=== PATIENT | female | born 2000 | race Caucasian/White ===

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

== ENCOUNTER 2020-02-13 20:26 | Emergency (ER) | payer BC, OTHER ==
[~2020-02-13] VITALS: Ht 162.6 cm; Wt 90.0 kg
--- NOTE | 2020-02-13 20:46 | PHYS DOC ---
Past History Past Medical History: Constipation, Other Past Surgical History: No Surgical History Smoking: Non-smoker Alcohol Use: None Drug Use: None Adult General Chief Complaint Chief Complaint: ALLERGIC REACTION... " I think that I am allergic to a hedge hog".." Right after we brought home 'Anand' my face started swelling up...".. " He is a albino Hedge Hog...." HPI HPI Patient is a 19 year old female who presents with above hx and complaints of allergic reaction to her new pet Hedge Hog. Patient has facial edema and erythema. Nasal congestion and rhinorrhea with scattered wheezes. Patient has not had previous exposure to Hedge Hogs. No new changes and other meds soaps or exposures patient did take Benadryl at home which has helped . No recent travel. No history immunosuppression. No history of other sensitivities noted. Patient's symptoms did remove improve after removal of Hedge Hog from home.. Pt. follows with Dr. Connie Corey. Review of Systems Review of Systems Constitutional: Denies fever or chills [] Eyes: Denies change in visual acuity, redness, or eye pain [] HENT: Complains of nasal congestion and drainage] Respiratory: Complaints of wheezing Cardiovascular: No additional information not addressed in HPI [] GI: Denies abdominal pain, nausea, vomiting, bloody stools or diarrhea [] : Denies dysuria or hematuria [] Musculoskeletal: Denies back pain or joint pain [] Integument: Complaints of facial rash and swelling Neurologic: Denies headache, focal weakness or sensory changes [] Endocrine: Denies polyuria or polydipsia [] All other systems were reviewed and found to be within normal limits, except as documented in this note. Family History Family History Noncontributory to her presentation Current Medications Current Medications See nursing for home meds Allergies Allergies Allergies Coded Allergies Type Severity Reaction Last Updated Verified No Known Drug Allergies 03/26/19 No Physical Exam Physical Exam Constitutional: Well developed, well nourished, moderate acute distress, non- toxic appearance. [] HENT: Normocephalic, atraumatic, bilateral external ears normal, oropharynx mois t, no oral exudates, nose swollen turbinates and clear rhinorrhea. Bilateral facial erythema and swelling and periorbital edema Eyes: PERRLA, EOMI, conjunctiva mild injection, no discharge. [] Neck: Normal range of motion, no tenderness, supple, no stridor. [] Cardiovascular:Heart rate regular rhythm, no murmur [] Lungs & Thorax: Bilateral breath sounds equal apex with scattered wheezes on auscultation [] Abdomen: Bowel sounds normal, soft, no tenderness, no masses, no pulsatile masses. [] Skin: Warm, dry, no erythema, facial rash. [] Back: No tenderness, no CVA tenderness. [] Extremities: No tenderness, no cyanosis, no clubbing, ROM intact, no edema. [] Neurologic: Alert and oriented X 3, normal motor function, normal sensory function, no focal deficits noted. [] Psychologic: Affect normal, judgement normal, mood normal. [] EKG EKG [] Radiology/Procedures Radiology/Procedures [] Course & Med Decision Making Course & Med Decision Making Pertinent Labs and Imaging studies reviewed. (See chart for details) Patient to wash all clothing wear hedge hog had contact. Avoid further exposure. Take prednisone 50 mg a day for 5 days. Takes Zantac 150 mg twice a day. Use MDI 2 puffs 4 times a day. Continue Benadryl 25-50 mg 4 times a day. Follow-up primary care. Return if any concerns. Impression: 1. 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 Departure Departure: Disposition: HOME/RESIDENCE PRIOR TO ADM Condition: STABLE Referrals: CONNIE COREY MD (PCP) Scripts Ranitidine Hcl (ZANTAC) 150 Mg Tablet 150 MG PO BID for allergic for 10 Days, #20 TAB Prov: FROILAN KHALIL MD 02/13/20 Prednisone (PREDNISONE) 50 Mg Tablet 50 MG PO DAILY for allergy for 5 Days, #5 TAB Prov: FROILAN KHALIL MD 02/13/20 Josse Disclaimer This chart was dictated in whole or in part using Voice Recognition software in a busy, high-work load, and often noisy Emergency Department environment. It ma y contain unintended and wholly unrecognized errors or omissions. Dragon Disclaimer This chart was dictated in whole or in part using Voice Recognition software in a busy, high-work load, and often noisy Emergency Department environment. It may contain unintended and wholly unrecognized errors or omissions. FROILAN KHALIL MD Feb 13, 2020 20:46
[2020-02-13] MEDS ORDERED: predniSONE 10 MG TABLET PO ONE (21:15)
[2020-02-13] MEDS ORDERED: FAMOTIDINE 20 MG TABLET PO ONE (21:15)
[2020-02-13] MEDS ORDERED: ALBUTEROL SULFATE 8GM INHALER. INH ONE (21:15)
[2020-02-13] MEDS ORDERED: RANI-376 PO (21:36)
[2020-02-13] MEDS ORDERED: PRED50TA PO (21:36)
[2020-02-13 22:17] LABS: BACTERIA,URINE FEW /HPF (0-FEW); BILIRUBIN,URINE NEG (NEG); CLARITY,URINE HAZY; COLOR,URINE YELLOW; GLUCOSE,URINE NEG (NEG); NITRITE,URINE NEG (NEG); RBC,URINE 0 /HPF (0-2); SQUAMOUS EPITHELIAL CELL,UR FEW /LPF; UROBILINOGEN,URINE 0.2 mg/dL (0.2 mg/dL)
[2020-02-13 22:40] VITALS: BP 136/77
== END 2020-02-13 22:35 | disposition home or self-care (01) ==
LOC: ER 20:26
DX: T78.40XA Allergy, unspecified, initial encounter (principal); X58.XXXA Exposure to other specified factors, initial encounter
CPT/HCPCS: 81001; 81025; 94640; 99283; J7512; J7613; 94664

== ENCOUNTER 2020-03-13 11:46 | Emergency (ER) | payer BC ==
[~2020-03-13] VITALS: Ht 162.6 cm; Wt 95.0 kg
[~2020-03-13 11:46] MED LIST: PRED50TA PO; RANI-376 PO
[2020-03-13] MEDS ORDERED: ONDANSETRON PF 4 MG/2 ML VIAL. IVP ONE (12:15)
[2020-03-13] MEDS ORDERED: IV NORMAL SALINE 1,000ML 1,000 ML IV SCH (12:15)
--- NOTE | 2020-03-13 12:19 | PHYS DOC ---
Past History Past Medical History: No Pertinent History Past Surgical History: No Surgical History Smoking: Non-smoker Alcohol Use: None Drug Use: None General Adult EDM: Chief Complaint: FLANK PAIN HPI: HPI: 20-year-old female who presents for evaluation of sudden onset of throbbing right flank pain that radiates the right lower quadrant that began earlier today. Associated with nausea and 2 episodes of nonbloody/nonbilious emesis. No prior abdominal surgeries. No other associated symptoms. Denies hematuria or dysuria. No prior history of nephrolithiasis. Review of Systems: Review of Systems: General: No fevers, chills. Eyes: No blurred vision, diplopia. ENT: No nasal congestion, sore throat. CV: No chest pain, edema. Resp: No shortness of breath, cough. GI: Reports right flank pain and abdominal pain, nausea, vomiting. : No dysuria, hematuria. Neuro: No headache, dizziness, weakness. MSK: No myalgia, arthralgia Skin: No acute rash, lesion. Heart Score: Risk Factors: Risk Factors: DM, Current or recent (<one month) smoker, HTN, HLP, family history of CAD, obesity. Risk Scores: Score 0 - 3: 2.5% MACE over next 6 weeks - Discharge Home Score 4 - 6: 20.3% MACE over next 6 weeks - Admit for Clinical Observation Score 7 - 10: 72.7% MACE over next 6 weeks - Early Invasive Strategies Allergies: Allergies: Allergies Coded Allergies Type Severity Reaction Last Updated Verified No Known Drug Allergies 03/26/19 No Physical Exam: PE: Gen: Uncomfortable appearing. Head: NC/AT Eyes: No scleral icterus. No conjunctival injection. ENT: MMM. Posterior OP clear. Neck: Supple. NT. CV: RRR. Peripheral pulses intact. Resp: CTAB. Abd: Soft. ND. Right flank percussion tenderness. No overlying skin changes. No rebound, guarding, rigidity. MSK: No peripheral cyanosis. No edema. Neuro: Awake and alert. Skin: Warm. Dry. Psych: Tearful. Current Patient Data: Vital Signs: Vital Signs Date Time Temp Pulse Resp B/P (MAP) Pulse Ox O2 Delivery O2 Flow Rate FiO2 03/13/20 12:03 98.5 68 18 161/113 (129) 98 Room Air EKG: EKG: [] Radiology/Procedures: Radiology/Procedures: CT Abdomen and Pelvis without contrast History: Right flank pain Technique: Noncontrast CT imaging was performed of the abdomen and pelvis. Multiplanar images are reviewed. Exposure: One or more of the following individualized dose reduction techniques were utilized for this examination: 1. Automated exposure control 2. Adjustment of the mA and/or kV according to patient size 3. Use of iterative reconstruction technique. Comparison: March 26, 2019 Findings: There is mild right hydroureteronephrosis, 0.2 cm calculus in the distal right ureter just proximal to the ureterovesical junction. There is probable punctate mid right renal calculus as suggested on coronal image. There is 0.1 cm calculus of the mid left kidney, no left hydronephrosis or ureteral calculus. Accurate evaluation of abdominal visceral organs is limited without intravenous contrast. There is no obvious abnormality of the spleen, liver, or pancreas. Gallbladder is present without obvious intraluminal abnormality by CT. There is no adrenal nodularity. Accurate evaluation of bowel is limited without oral contrast. Normal caliber appendix is visualized without adjacent inflammatory change. There is no significant free air, free fluid, bowel dilatation. There may be small cysts of the adnexal regions bilaterally. There are multiple small nonspecific mesenteric and retroperitoneal nodes as seen previously. Impression: 1. There is mild right hydroureteronephrosis, 0.2 cm calculus in the distal right ureter proximal to the ureterovesical junction. There is small nonobstructive left renal calculus, also likely punctate mid right renal calculus. 2. There may be small cysts of the adnexal regions bilaterally. Electronically signed by: Celso Walsh MD (03/13/2020 1:13 PM) [id number] Course & Med Decision Making: Course & Med Decision Making Pertinent Labs and Imaging studies reviewed. (See chart for details) In summary, 20-year-old female presenting with right flank pain, found to have right-sided ureterolithiasis. Otherwise unremarkable lab work. Pain improved with fentanyl and morphine. We discharged home with outpatient urology follow- up. Rx for [place] [employer] and Zofran. Return precautions given. Dragon Disclaimer: Josse Disclaimer: This electronic medical record was generated, in whole or in part, using a voice recognition dictation system. Departure Departure: Impression: Primary Impression: Right ureteral calculus Disposition: HOME, SELF-CARE Condition: STABLE Referrals: LUCI COREY MD (PCP) Patient Instructions: Kidney Stones, [id number] Additional Instructions: Follow up with [facility], or the urologist of your choice, by calling [phone] Scripts Hydrocodone Bit/Acetaminophen (NORCO 5-325 TABLET) 1 Each Tablet 1 TAB PO Q8HRS PRN for PAIN, #15 TAB 0 Refills Prov: LE,FRANKLIN H DO 03/13/20 Ondansetron Hcl (ZOFRAN) 4 Mg Tablet 1 TAB PO PRN Q6HRS PRN for NAUSEA, #12 TAB Prov: LE,FRANKLIN H DO 03/13/20 LE,FRANKLIN H DO Mar 13, 2020 12:19
[2020-03-13] MEDS ORDERED: ONDANSETRON ODT 4 MG TAB.RAPDIS PO ONE (12:45)
[2020-03-13 12:53] LABS: BASO % 1 % (0-3); EOS # 0.3 x10^3/uL (0.0-0.7); EOS % 4 % (0-3); HEMATOCRIT 44.2 % (36.0-47.0); HEMOGLOBIN 14.8 g/dL (12.0-15.5); LYMPH # 2.8 x10^3/uL (1.0-4.8); LYMPH % 44 % (24-48); MEAN CORPUSCULAR HEMOGLOBIN 31 pg (25-35); MEAN CORPUSCULAR HGB CONC 34 g/dL (31-37); MEAN CORPUSCULAR VOLUME 92 fL (79-100); MONO # 0.4 x10^3/uL (0.0-1.1); MONO % 6 % (0-9); NEUT % 46 % (31-73); PLATELET COUNT 322 x10^3/uL (140-400); RED CELL DISTRIBUTION WIDTH 12.7 % (11.5-14.5); WHITE BLOOD COUNT 6.5 x10^3/uL (4.0-11.0)
[2020-03-13 12:56] LABS: CALCIUM 8.9 mg/dL (8.5-10.1); GFR 70.7; POTASSIUM 3.7 mmol/L (3.5-5.1)
[2020-03-13 13:01] LABS: BACTERIA,URINE FEW /HPF (0-FEW); BILIRUBIN,URINE NEG (NEG); CLARITY,URINE HAZY; COLOR,URINE YELLOW; GLUCOSE,URINE NEG (NEG); NITRITE,URINE NEG (NEG); RBC,URINE 20-40 /HPF (0-2); SQUAMOUS EPITHELIAL CELL,UR MOD /LPF; UROBILINOGEN,URINE 0.2 mg/dL (0.2 mg/dL)
[2020-03-13 13:02] LABS: ALBUMIN 3.8 g/dL (3.4-5.0); MAGNESIUM 1.9 mg/dL (1.8-2.4); TOTAL BILIRUBIN 0.3 mg/dL (0.2-1.0); TOTAL PROTEIN 7.6 g/dL (6.4-8.2)
--- NOTE | 2020-03-13 13:16 | RAD ---
CT Abdomen and Pelvis without contrast History: Right flank pain Technique: Noncontrast CT imaging was performed of the abdomen and pelvis. Multiplanar images are reviewed. Exposure: One or more of the following individualized dose reduction techniques were utilized for this examination: 1. Automated exposure control 2. Adjustment of the mA and/or kV according to patient size 3. Use of iterative reconstruction technique. Comparison: March 26, 2019 Findings: There is mild right hydroureteronephrosis, 0.2 cm calculus in the distal right ureter just proximal to the ureterovesical junction. There is probable punctate mid right renal calculus as suggested on coronal image. There is 0.1 cm calculus of the mid left kidney, no left hydronephrosis or ureteral calculus. Accurate evaluation of abdominal visceral organs is limited without intravenous contrast. There is no obvious abnormality of the spleen, liver, or pancreas. Gallbladder is present without obvious intraluminal abnormality by CT. There is no adrenal nodularity. Accurate evaluation of bowel is limited without oral contrast. Normal caliber appendix is visualized without adjacent inflammatory change. There is no significant free air, free fluid, bowel dilatation. There may be small cysts of the adnexal regions bilaterally. There are multiple small nonspecific mesenteric and retroperitoneal nodes as seen previously. Impression: 1. There is mild right hydroureteronephrosis, 0.2 cm calculus in the distal right ureter proximal to the ureterovesical junction. There is small nonobstructive left renal calculus, also likely punctate mid right renal calculus. 2. There may be small cysts of the adnexal regions bilaterally. Electronically signed by: Celso Walsh MD (03/13/2020 1:13 PM) [id number]
[2020-03-13] MEDS ORDERED: MORPHINE SULFATE 4 MG/ML DISP.SYRIN. IV ONE (13:30)
[2020-03-13 13:57] VITALS: BP 144/66
[2020-03-13] MEDS ORDERED: HYDR-3165 PO (14:07)
[2020-03-13] MEDS ORDERED: ONDA4TAB7 PO (14:07)
== END 2020-03-13 14:08 | disposition home or self-care (01) ==
LOC: ER 11:46
DX: N13.2 Hydronephrosis with renal and ureteral calculous obstruction (principal); R11.2 Nausea with vomiting, unspecified
CPT/HCPCS: 36415; 74176; 80053; 81001; 81025; 83690; 83735; 85025; 96361; 96374; 96376; 99284; J3010; Q0162; J7030

== ENCOUNTER → 2020-07-02 | Outpatient (CLI) | payer BC ==
[~2020-07-02] MED LIST changes: +HYDR-3165 PO; +ONDA4TAB7 PO
[2020-07-02 16:00] LABS: BASO # 0.1 x10^3/uL (0.0-0.2); BASO % 1 % (0-3); EOS # 0.2 x10^3/uL (0.0-0.7); EOS % 3 % (0-3); HEMATOCRIT 42.1 % (36.0-47.0); HEMOGLOBIN 14.1 g/dL (12.0-15.5); LYMPH # 2.2 x10^3/uL (1.0-4.8); LYMPH % 33 % (24-48); MEAN CORPUSCULAR HEMOGLOBIN 31 pg (25-35); MEAN CORPUSCULAR HGB CONC 34 g/dL (31-37); MEAN CORPUSCULAR VOLUME 93 fL (79-100); MONO # 0.4 x10^3/uL (0.0-1.1); MONO % 7 % (0-9); NEUT # 3.8 x10^3uL (1.8-7.7); NEUT % 57 % (31-73); PLATELET COUNT 342 x10^3/uL (140-400); RED BLOOD COUNT 4.52 x10^6/uL (3.50-5.40); RED CELL DISTRIBUTION WIDTH 12.8 % (11.5-14.5); WHITE BLOOD COUNT 6.7 x10^3/uL (4.0-11.0)
[2020-07-03 13:59] LABS: FREE T4 0.99 ng/dL (0.76-1.46); THYROID STIM HORMONE (TSH) 2.103 uIU/mL (0.358-3.740)
[2020-07-03 19:07] LABS: RUBELLA IGG ANTIBODY <0.90 index (Immune >0.99)
== END | disposition home or self-care (01) ==
LOC: LAB 13:48
PROVIDERS: ATTEND Obstetrics & Gynecology
DX: Z34.91 Encounter for supervision of normal pregnancy, unspecified, first trimester (principal); Z3A.00 Weeks of gestation of pregnancy not specified
CPT/HCPCS: 36415; 81220; 84439; 84443; 84702; 85025; 86592; 86703; 86762; 86787; 86803; 86850; 86900; 86901; 87340

== ENCOUNTER → 2020-07-16 | Outpatient (CLI) | payer BC ==
--- NOTE | 2020-07-16 11:24 | RAD ---
EXAM: Obstetrics sonogram. HISTORY: Size and dates. TECHNIQUE: Sonographic imaging of a gravid uterus was performed. COMPARISON: None. FINDINGS: The uterus measures 9.2 x 5.2 x 4.7 cm. There is a single intrauterine gestational sac with pole and yolk sac. The crown-rump length is 4.5 mm, corresponding with a gestational age of 6 weeks and 1 day. The heart rate is normal at 122 bpm. No subchorionic hematoma is seen. The ovaries are normal in size and demonstrate normal blood flow. There is no pelvic free fluid. IMPRESSION: Single intrauterine fetus with normal heart rate and gestational age patient ultrasound measurements of 6 weeks and 1 day. Electronically signed by: Connie Garduno MD (07/16/2020 11:21 AM) [id number]
== END | disposition home or self-care (01) ==
LOC: US 10:49
PROVIDERS: ATTEND Obstetrics & Gynecology
DX: Z34.91 Encounter for supervision of normal pregnancy, unspecified, first trimester (principal); Z3A.01 Less than 8 weeks gestation of pregnancy
CPT/HCPCS: 76801

== ENCOUNTER → 2020-12-06 | Outpatient (CLI) | payer OTHER ==
[2020-12-06 11:22] LABS: BASO % 0 % (0-3); EOS # 0.2 x10^3/uL (0.0-0.7); EOS % 2 % (0-3); HEMATOCRIT 34.7 % (36.0-47.0); HEMOGLOBIN 11.6 g/dL (12.0-15.5); LYMPH # 1.6 x10^3/uL (1.0-4.8); LYMPH % 21 % (24-48); MEAN CORPUSCULAR HEMOGLOBIN 30 pg (25-35); MEAN CORPUSCULAR HGB CONC 33 g/dL (31-37); MEAN CORPUSCULAR VOLUME 90 fL (79-100); MONO # 0.5 x10^3/uL (0.0-1.1); MONO % 7 % (0-9); NEUT # 5.4 x10^3uL (1.8-7.7); NEUT % 70 % (31-73); PLATELET COUNT 327 x10^3/uL (140-400); RED BLOOD COUNT 3.87 x10^6/uL (3.50-5.40); RED CELL DISTRIBUTION WIDTH 14.4 % (11.5-14.5); WHITE BLOOD COUNT 7.7 x10^3/uL (4.0-11.0)
== END ==
LOC: LAB 11-30 10:33
PROVIDERS: ATTEND Obstetrics & Gynecology
DX: Z34.92 Encounter for supervision of normal pregnancy, unspecified, second trimester (principal); Z3A.25 25 weeks gestation of pregnancy
CPT/HCPCS: 36415; 82950; 85025